=== PATIENT | male | born 1960 | race Two or more races ===

== ENCOUNTER → 2024-02-21 13:12 | Outpatient (REF) | payer MEDICARE, OTHER, SELFPAY | LOC: PAVMRI 13:12 | PROVIDERS: ATTENDING PHYSICIAN Family Medicine | DX: K86.2 Cyst of pancreas (principal) | CPT/HCPCS: 74183; A9575 ==

== ENCOUNTER → 2024-07-09 11:41 | Outpatient (REF) | payer MEDICARE, OTHER, SELFPAY | LOC: PAVMRI 11:41 | PROVIDERS: ATTENDING PHYSICIAN Family Medicine | DX: K86.9 Disease of pancreas, unspecified (principal); R10.84 Generalized abdominal pain | CPT/HCPCS: 74183; A9575 ==

== ENCOUNTER 2024-08-05 06:17 | Day surgery (SDC) | payer MEDICARE, OTHER, SELFPAY | END 2024-08-05 10:23 | disposition home or self-care (01) | LOC: GI 06:17 | PROVIDERS: ATTENDING PHYSICIAN Internal Medicine Gastroenterology | DX: Z12.11 Encounter for screening for malignant neoplasm of colon (principal); K64.8 Other hemorrhoids; K57.30 Diverticulosis of large intestine without perforation or abscess without bleeding; R12 Heartburn; K44.9 Diaphragmatic hernia without obstruction or gangrene; K31.7 Polyp of stomach and duodenum; K22.2 Esophageal obstruction; D12.5 Benign neoplasm of sigmoid colon; Z86.0100 Personal history of colon polyps, unspecified | CPT/HCPCS: 45385; 43239; 88305 ==

== ENCOUNTER → 2024-08-22 15:10 | Outpatient (REF) | payer MEDICARE, OTHER, SELFPAY | LOC: PAVMRI 15:10 | PROVIDERS: ATTENDING PHYSICIAN Family Medicine | DX: M25.561 Pain in right knee (principal) | CPT/HCPCS: 73721 ==

== ENCOUNTER → 2025-04-16 12:20 | Outpatient (REF) | payer MEDICARE, OTHER, SELFPAY | LOC: HWRAD 12:20 | PROVIDERS: ATTENDING PHYSICIAN Family Medicine | DX: R59.0 Localized enlarged lymph nodes (principal); R60.0 Localized edema; H92.01 Otalgia, right ear; R91.1 Solitary pulmonary nodule | CPT/HCPCS: 71250; 76536 ==

== ENCOUNTER → 2025-04-22 10:48 | Outpatient (REF) | payer MEDICARE, OTHER, SELFPAY ==
[2025-04-22 11:53] LABS: ALT (SGPT) 35 U/L (0-50); AST (SGOT) 41 U/L (17-59); Albumin 4.7 g/dl (3.5-5.0); Alkaline Phosphatase 49 U/L (38-126); Blood Urea Nitrogen 23 mg/dl (9-20); Calcium 9.3 mg/dl (8.4-10.2); Carbon Dioxide 31 mmol/L (22-30); Chloride 102 mmol/L (98-107); Glucose 82 mg/dl (70-99); Potassium 4.6 mmol/L (3.5-5.1); Sodium 138 mmol/L (135-145); Total Protein 7.7 g/dl (6.3-8.2); eGFR > 60.00
== END ==
LOC: RCS 10:48
PROVIDERS: ATTENDING PHYSICIAN Family Medicine
DX: K21.00 Gastro-esophageal reflux disease with esophagitis, without bleeding (principal); I10 Essential (primary) hypertension
CPT/HCPCS: 36415; 80053; 93005

== ENCOUNTER → 2025-04-30 14:15 | Outpatient (REF) | payer MEDICARE, OTHER, SELFPAY | LOC: RAD 14:15 | PROVIDERS: ATTENDING PHYSICIAN Family Medicine | DX: M54.2 Cervicalgia (principal); H93.8X3 Other specified disorders of ear, bilateral; R68.84 Jaw pain | CPT/HCPCS: 70492; Q9967 ==